=== PATIENT | female | born 1955 | race Caucasian/White ===

== ENCOUNTER 2016-06-18 08:41 | Emergency (ER) | payer BC, OTHER ==
[~2016-06-18] VITALS: Ht 170.2 cm; Wt 77.1 kg
[2016-06-18 11:14] VITALS: BP 122/60
[2016-06-18] MEDS ORDERED: HYDROcodone-ACET 5/325MG TAB PO ONE (11:30)
== END 2016-06-18 11:50 | disposition home or self-care (01) ==
LOC: ER 08:44
DX: S82.142A Displaced bicondylar fracture of left tibia, initial encounter for closed fracture (principal); M17.12 Unilateral primary osteoarthritis, left knee; Z88.0 Allergy status to penicillin; Z88.1 Allergy status to other antibiotic agents; W19.XXXA Unspecified fall, initial encounter; Y93.89 Activity, other specified; Y99.8 Other external cause status; Y92.89 Other specified places as the place of occurrence of the external cause
CPT/HCPCS: 29505; 73562